=== PATIENT | female | born 1970 | race African-American/Black ===

== ENCOUNTER 2016-06-15 11:56 | Emergency (ER) | payer MEDICARE ==
--- NOTE | ~2016-06-15 | CR72 ---
[facility] A Service of [facility] RADIOLOGY TEXT RESULTS PATIENT: HUSEYIN FARIAS LOCATION: [facility] : 68 UNIT #: [id number] AGE: [address]: Marcellus Hercules MD SEX: F ORDER DR: [id number] [facility] [address] [place], [place] [address] [id number] E MR#: [id number] Acc #: [id number] NAME: HUSEYIN FARIAS. : 1970 SEX: F STUDY DATE/TIME: 06/15/2016 11:42 UNIT: DELMAR ROOM: STUDY DESCRIPTION: CR Chest Single View Portable Attending Physician: Marcellus Hercules M.D. Ordering Physician: Marcellus Hercules M.D. Primary Care Physician: Dimitri Avila A.P.R.N. MEDICAL IMAGING REPORT This report is preliminary unless electronic signature is present EXAM Frontal chest, 06/15/2016. INDICATION 46-year-old female with chest pain, cough and congestion for a week. Quit smoking 4 days ago. Hypertension. TECHNIQUE Frontal chest compared with 09/15/2006. FINDINGS Cardiac silhouette is enlarged even for portable technique. The vascularity is unremarkable. There is no dense consolidation, effusion, or pneumothorax. Examination degraded by technical factors related to body habitus. IMPRESSION Cardiomegaly, otherwise negative frontal chest. Exam degraded by body habitus. Dictated by... Rene Zhao M.D. THIS IS AN ELECTRONICALLY VERIFIED REPORT Rene Zhao M.D. at 06/15/2016 4:52 PM MARIELA/ray TD: 06/15/2016 15:52 JOB #: [id number] MEDICAL IMAGING REPORT [facility] A Service [facility] RADIOLOGY TEXT RESULTS PATIENT: HUSEYIN FARIAS LOCATION: [facility] : 68 UNIT #: [id number] AGE: [address]: Marcellus Hercules MD SEX: F ORDER DR: FERDINAND
--- NOTE | ~2016-06-15 | EKG ---
PATIENT: HUSEYIN FARIAS UNIT #: [id number] Ventricular Rate: 88 BPM Atrial Rate: 88 BPM P-R Interval: 128 ms QRS Duration: 68 ms Q-T Interval: 366 ms QTC Calculation(Bezet): 442 ms P [place]: 34 degrees Calculated R [place]: 23 degrees Calculated T [place]: 12 degrees Diagnosis Line: Normal sinus rhythm Diagnosis Line: Normal ECG Diagnosis Line: No previous ECGs available Diagnosis Line: Confirmed by EMILY BEAVERS MD ([id number]) on Diagnosis Line: 06/16/2016 11:23:41 AM INTERPRETING MD: NIMESH ALFORD
[~2016-06-15 11:56] MED LIST: ATARAX PO; FAMOTIDINE PO; PREDNISONE PO
[2016-06-15 12:03] LABS: POC - CKMB 1.2 ng/mL (0.0-7.9); POC - TROPONIN <0.05 ng/mL (<=0.05)
[2016-06-15 12:06] LABS: BASOPHIL% 0.4 % (0-2.5); EOSINOPHIL% 0.6 % (0.0-7.0); HEMATOCRIT 38.1 % (35.0-45.0); HEMOGLOBIN 11.8 gm/dL (12.0-16.0); LYMPHOCYTE# 1.6 X10e3 (1.0-3.5); LYMPHOCYTE% 29.4 % (17.0-45.0); MEAN CELL VOLUME 76.8 FL (83-96); MEAN CORPUSCULAR HEMOGLOBIN 23.8 PG (28-34); MEAN PLATELET VOLUME 7.3 FL (6.5-11.5); MONOCYTE# 0.6 X10e3 (0-1.0); MONOCYTE% 10.2 % (3.0-12.0); NEUTROPHIL# 3.3 X10e3 (1.5-7.1); NEUTROPHIL% 59.4 % (40-75); PLATELET COUNT 410 X10e3 (140-420); RED BLOOD COUNT 4.96 X10e (3.90-5.30); RED CELL DISTRIBUTION WIDTH 17.1 % (11.0-15.5); WHITE BLOOD COUNT 5.5 X10e3 (4.0-10.5)
[2016-06-15 12:10] LABS: DIFF IND NO
[2016-06-15 12:29] LABS: ALBUMIN SERUM 3.5 g/dL (3.5-5.0); ALKALINE PHOSPHATASE 58 U/L (32-92); ALT (SGPT) 23 U/L (10-40); AST (SGOT) 27 U/L (10-42); BILIRUBIN, DIRECT 0.1 mg/dL (0.0-0.2); BILIRUBIN,INDIRECT 0.2 mg/dL (0.0-0.9); BILIRUBIN,TOTAL 0.3 mg/dL (0.2-2.0); BLOOD UREA NITROGEN 10 mg/dL (9-23); CALCIUM SERUM 8.9 mg/dL (8.4-10.2); CARBON DIOXIDE 25 mmol/L (22-31); CHLORIDE 95 mmol/L (100-111); CREATININE SERUM 0.8 mg/dL (0.6-1.4); GLOM FILT RATE Estimated ABOVE60 mL/min (>60); GLUCOSE FASTING 292 mg/dL (70-110); POTASSIUM 4.2 mmol/L (3.5-5.1); PROTEIN TOTAL SERUM 7.2 g/dL (6.0-8.3); SODIUM 134 mmol/L (135-145)
[2016-06-15 13:43] LABS: POC - CKMB <1.0 ng/mL (0.0-7.9); POC - TROPONIN <0.05 ng/mL (<=0.05)
== END 2016-06-15 13:59 | disposition home or self-care (01) ==
LOC: CED 11:56
PROVIDERS: Emergency Medicine
DX: J20.9 Acute bronchitis, unspecified (principal); I10 Essential (primary) hypertension; F41.0 Panic disorder [episodic paroxysmal anxiety]; F17.210 Nicotine dependence, cigarettes, uncomplicated; Z79.899 Other long term (current) drug therapy; Z88.0 Allergy status to penicillin
CPT/HCPCS: 36415; 71010; 80048; 80076; 82553; 84484; 85025; 93005; 99284

== ENCOUNTER 2016-09-25 13:47 | Inpatient (IN) | payer MEDICARE ==
--- NOTE | ~2016-09-25 | A ---
[facility] Nutrition Therapy DATE: 09/27/16 Patient: HUSEYIN FARIAS Physician: CONCEPCION Address: [address] Room/Bed: [address] [place] [address], Zip: [place] [address] Admit Date: 09/25/16 Date of : [birth year] Height: 5 2.75 Weight: 330 150 NUTRITIONAL ASSESSMENT: REASON: DIET EDUCATION CONSULT AND HIGH BMI DOCUMENTATION 46 YO FEMALE ADMITTED FOR CHEST PAIN Anthropometrics: HT: 5'2" WT: 150 KG BMI: 60.5 Assessment: CHART REVIEWED, EVENTS NOTED. RD CONSULTED TO SEE THE PT FOR CHF DIET EDUCATION/ MEAL PLANNING. RD SPOKE WITH THE PT AT BEDSIDE. PT VOICED MOTIVATION TO MAKE CHANGES THER DIET, STATING THAT SHE IS OVERWHELMED AND SCARED. RD PROVIDED EXTENSIVE HH/CC DIET EDUCATION, WITH FOCUS ON 2 GRAM NA+ DIET FOR CHF. PT WAS VERY APPRECIATIVE, EXPLAINING THAT SHE FEELS MORE PREPARED TO MAKE CHANGES NOW. PT ALSO ASKED ABOUT EXERCISE. RD ENCOURAGED THE PT TO SPEAK WITH HER MD REGARDING EXERCISE. RD PROVIDED PRINTED MATERIALS, AND ENCOURAGED THE PT TO CONTACT RD WITH ANY QUESTIONS. Recommendations: 1. FOLLOW A HH (2 GRAM NA+) /CC DIET INSTRUCTED BY RD. 2. PT WOULD BENEFIT FROM SEEING AN OUTPATIENT RD OR ATTENDING FREE CLASSES AT HER LOCAL HEALTH DEPARTMENT FOR ADDITIONAL EDUCATION AND FOLLOW UP. [facility] CONSULT RD FOR ANY FURTHER NUTRITIONAL NEEDS. Respectfully, MINI CORTÉS RD, LD Food and Nutritional Services [facility] cc: client file
--- NOTE | ~2016-09-25 | CO ---
Unit #: [id number] #: [id number] Patient: HUSEYIN VIDES [id number] [address] [address] [id number] I MR#: [id number] NAME: HUSEYIN VIDES ROOM: 303 Age: 46 Sex: F Admission Date: 09/25/2016 : 1970 Attending Physician: Wilfredo Brewer M.D. Primary Care Physician: Dimitri Avila A.P.R.N. CONSULTATION REPORT REASON FOR CONSULTATION Management of diabetes mellitus. Ms. Vides is a 46-year-old -[place]ian female who has been admitted with increasing shortness of air, swelling in lower extremities and dyspnea and some chest discomfort. Her blood sugar has been elevated and I have been asked to see the patient for further management. MEDICAL HISTORY 1. Type 2 diabetes mellitus. 2. Morbid obesity. 3. Depression/bipolar disorder. PAST SURGICAL HISTORY I and D. MEDICATIONS Home medications include: 1. Metformin 1000 mg twice daily. 2. 70/30 mix NovoLog, 30 units twice daily. Other medications include: 3. Lopressor. 4. Furosemide. 5. Hydrocortisone. 6. Pravastatin. 7. Lisinopril. ALLERGIES Penicillin. SOCIAL HISTORY She is an active smoker. Declines alcohol or illicit drugs. FAMILY HISTORY Unremarkable. PHYSICAL EXAMINATION GENERAL APPEARANCE: She is awake, alert, oriented to time, place and person. VITAL SIGNS: Temperature 98.4, pulse 82, blood pressure 159/88, weighs 330 pounds with a BMI of 59. HEENT: EOMI. Pupils equal, react to light. NECK: Supple. No thyromegaly noted. CHEST: Good air entry. Unit #: [id number] #: [id number] Patient: HUSEYIN VIDES CVS: Regular rhythm. No murmurs. ABDOMEN: Soft, nontender. Bowel sounds positive. EXTREMITIES: She does have some edema. DIAGNOSTIC STUDIES LABORATORY: CMP is within normal limits. Glucose log is reviewed. ASSESSMENT 1. Uncontrolled type 2 diabetes mellitus. 2. Morbid obesity. 3. Hypertension. PLAN Change the insulin to 70/30 NovoLog mix 40 units subcu twice daily before meals. Will continue her metformin same dose. Accu-Cheks a.c. and h.s. Continue to follow the patient for further management. Dictated by... Rafael Ocampo/myke TD: 09/29/2016 09:37 JOB #: [id number] CONSULTATION REPORT Page 1 of 1 X Svitlana Brady MD X CONSULTATION REPORT
--- NOTE | ~2016-09-25 | EKG ---
PATIENT: HUSEYIN FARIAS UNIT #: [id number] Ventricular Rate: 76 BPM Atrial Rate: 76 BPM P-R Interval: 136 ms QRS Duration: 68 ms Q-T Interval: 404 ms QTC Calculation(Bezet): 454 ms P [place]: 30 degrees Calculated R [place]: 24 degrees Calculated T [place]: 6 degrees Diagnosis Line: Normal sinus rhythm Diagnosis Line: Nonspecific T wave abnormality Diagnosis Line: Abnormal ECG Diagnosis Line: When compared with ECG of 15-JUN-2016 11:18, Diagnosis Line: Nonspecific T wave abnormality now evident in Diagnosis Line: Anterior leads Diagnosis Line: Confirmed by KENNA LOGAN MD ([id number]) on Diagnosis Line: 09/26/2016 10:37:15 PM INTERPRETING : RIKKI
--- NOTE | ~2016-09-25 | CR63 ---
[facility] A Service of [facility] RADIOLOGY TEXT RESULTS PATIENT: HUSEYIN FARIAS LOCATION: [facility] 303- : [birth year] UNIT #: [id number] AGE: [address]: Wilfredo Brewer MD SEX: F ORDER DR: [id number] [facility] [address] [facility] [place], [place] [address] [id number] I MR#: [id number] Acc #: [id number] NAME: HUSEYIN FARIAS : 1970 SEX: F STUDY DATE/TIME: 10/03/2016 14:19 UNIT: [address] ROOM: 303 STUDY DESCRIPTION: CR Chest 2 View Attending Physician: Wilfredo Brewer M.D. Ordering Physician: Matthieu Hernandez M.D. Primary Care Physician: Dimitri Avila A.P.R.N. MEDICAL IMAGING REPORT This report is preliminary unless electronic signature is present EXAM PA and lateral chest HISTORY Shortness of air and CHF for 1.5 weeks. FINDINGS 2 views of the chest demonstrate the cardiac size and pulmonary vascularity are within normal limits allowing for relatively shallow inspiration. No airspace infiltrates or effusions. Probable tiny calcified granuloma in the left upper lung and moderate hypertrophic spurring mid and lower thoracic spine. IMPRESSION No acute findings and no evidence of active disease. Dictated by... Yoan Valenzuela M.D. THIS IS AN ELECTRONICALLY VERIFIED REPORT Yoan Valenzuela M.D. at 10/04/2016 5:34 PM KELSEY/paul TD: 10/04/2016 02:18 JOB #: [id number] MEDICAL IMAGING REPORT Page 1 of 1 COPY
--- NOTE | ~2016-09-25 | CT16 ---
[facility] A Service of [facility] RADIOLOGY TEXT RESULTS PATIENT: HUSEYIN FARIAS LOCATION: [facility] 303- : [birth year] UNIT #: [id number] AGE: [address]: Wilfredo Brewer MD SEX: F ORDER DR: [id number] [address] [id number] [facility]. [place], [place] [address] [id number] I MR#: [id number] Acc #: [id number] NAME: HUSEYIN FARIAS : 1970 SEX: F STUDY DATE/TIME: 09/25/2016 20:31 UNIT: [address] ROOM: 303 STUDY DESCRIPTION: CT Angio Chest for PE Attending Physician: Wilfredo Brewer M.D. Ordering Physician: Slade Chavarria A.P.R.N. Primary Care Physician: Dimitri Avila A.P.R.N. MEDICAL IMAGING REPORT This report is preliminary unless electronic signature is present EXAM CT chest, PE protocol. HISTORY Chest pain, shortness of air, elevated D-dimer. Symptoms for over a month. FINDINGS Axial images performed through the chest following IV contrast. Initial study was nondiagnostic and the patient was re-dosed and rescanned. Multiplanar reconstructed images reviewed at a workstation. This CT exam was performed with one or more of the following radiation dose reduction techniques: automatic exposure control, adjustment of mA and/or kV according to patient size, and iterative reconstruction. The pulmonary parenchyma unremarkable except for a small amount of lingular atelectasis. No infiltrates or effusions. Trachea and bronchi unremarkable. No evidence of pulmonary embolus. Mild cardiomegaly. Aorta free of dissection or aneurysm. Upper abdomen unremarkable. Osseous structures show mild degenerative changes. The thoracic inlet unremarkable. Marked obesity. IMPRESSION 1. Technically challenging study due to patient's marked obesity. 2. No evidence of pulmonary embolus. No acute intrathoracic abnormality identified. Dictated by.Poncho Gusman M.D. THIS IS AN ELECTRONICALLY VERIFIED REPORT [facility] A Service of [facility] RADIOLOGY TEXT RESULTS PATIENT: HUSEYIN FARIAS LOCATION: [facility] 303-01 : [birth year] UNIT #: [id number] AGE: [address]: Wilfredo Brewer MD SEX: F ORDER DR: Leeann Gusman M.D. at 09/26/2016 9:16 PM Otf TD: 09/25/2016 23:39 JOB #: [id number] MEDICAL IMAGING REPORT Page 1 of 1 COPY
--- NOTE | ~2016-09-25 | EKG ---
PATIENT: HUSEYIN FARIAS UNIT #: [id number] Ventricular Rate: 85 BPM Atrial Rate: 85 BPM P-R Interval: 122 ms QRS Duration: 70 ms Q-T Interval: 364 ms QTC Calculation(Bezet): 433 ms P [place]: 27 degrees Calculated R [place]: 21 degrees Calculated T [place]: 0 degrees Diagnosis Line: Normal sinus rhythm Diagnosis Line: Nonspecific T wave abnormality Diagnosis Line: Abnormal ECG Diagnosis Line: No previous ECGs available Diagnosis Line: Confirmed by PRIYA PENALOZA MD ([id number]) on 09/30/2016 Diagnosis Line: 8:27:43 PM INTERPRETING MD: TREMAINE ALFORD
--- NOTE | ~2016-09-25 | US84 ---
[id number] [facility] [address] [place], [place] [address] [id number] I MR#: [id number] Acc #: [id number] NAME: HUSEYIN FARIAS : 1970 SEX: F STUDY DATE/TIME: 09/27/2016 16:10 UNIT: C3A PCU ROOM: 303 STUDY DESCRIPTION: US LE Veins Complete Morgan Stdy Attending Physician: Wilfredo Brewer M.D. Ordering Physician: Wilfredo Brewer M.D. Primary Care Physician: Dimitri Avila A.P.R.N. MEDICAL IMAGING REPORT This report is preliminary unless electronic signature is present EXAM Bilateral lower extremity venous duplex 09/27/2016 HISTORY Bilateral lower extremity edema and pain in thighs for several months with edema worsening last month and shortness of breath. Evaluate for deep vein thrombosis. TECHNIQUE Venous ultrasound examination of both lower extremities was performed using grayscale, spectral Doppler and color flow Doppler imaging. FINDINGS The examination is negative. There is no evidence of deep venous thrombus from the groin to the lower calf bilaterally. Visualized greater saphenous veins are also patent. IMPRESSION Negative examination. No evidence of lower extremity deep venous thrombosis. Dictated by... Joseph Goodwin M.D. THIS IS AN ELECTRONICALLY VERIFIED REPORT Joseph Goodwin M.D. at 09/28/2016 8:05 AM EMILIANO/maddi TD: 09/28/2016 07:45 JOB #: [id number] MEDICAL IMAGING REPORT Page 1 of 1 COPY
--- NOTE | ~2016-09-25 | CO ---
Unit #: [id number] #: [id number] Patient: HUSEYIN FARIAS [id number] [address] [place], [place] [address] [id number] I MR#: [id number] NAME: HUSEYIN FARIAS ROOM: 303 Age: 46 Sex: F Admission Date: 09/25/2016 : 1970 Attending Physician: Wilfredo Brewer M.D. Primary Care Physician: Dimitri Avila A.P.R.N. Consultation Date: 09/26/2016 CONSULTATION REPORT REASON FOR CONSULTATION Chest pain. HISTORY OF PRESENT ILLNESS The patient is a 46-year-old, female with morbid obesity, risk factors such as hypertension, and hyperlipidemia. Over the last month, she has been having some increase in peripheral edema and lower extremity rash and itching. Yesterday, it was persistent regardless of increasing her home Lasix dose as well as having her blood pressure being elevated. Yesterday, the patient complained of a soreness in the chest and came to the hospital for further evaluation. She has also had a cough and some shortness of breath with exertion. PAST MEDICAL HISTORY Significant for morbid obesity, diabetes, hypertension, obstructive sleep apnea, noncompliant with CPAP over the last several years because her machine was damaged, GERD, and negative stress test in 2005. SOCIAL HISTORY The patient is a daily smoker. No alcohol or illicit drug use. FAMILY HISTORY Noncontributory. DIAGNOSTICS EKG shows sinus rhythm with no significant ST changes. D-dimer was elevated, but a CT of the chest was negative for PE. Chest x-ray shows a right middle lobe pneumonia. Troponin is negative x4. White blood cell count 11.2, hemoglobin 10.9, hematocrit 36.6, and platelet count 438. Sodium 136, potassium 4.9, chloride 97, CO2 of 28, BUN 14, creatinine 0.8, and glucose 282. ALLERGIES To penicillin. HOME MEDICATIONS Klonopin 1 mg b.i.d., Naprosyn 500 mg b.i.d., calcium 600 plus D one p.o. daily, natural vitamin E 400 international units daily, metoprolol tartrate 50 mg b.i.d., Lasix 40 mg daily, hydrocortisone cream 14 g topically to both legs daily, Ventolin 1 puff q.4 hours p.r.n., NovoLog mix 70/30 one unit subcu three times a with meals, Lamictal 300 mg daily, metformin a 1000 mg b.i.d., Latuda 20 mg daily, pravastatin 40 mg daily, and lisinopril 30 mg daily. Unit #: [id number] #: [id number] Patient: HUSEYIN FARIAS REVIEW OF SYSTEMS Complains of peripheral edema, shortness of breath, soreness in the chest, reproducible cough, and rash to both lower extremities. PHYSICAL EXAMINATION GENERAL: The patient is awake and alert. No apparent distress. Color is pale pink. SKIN: Warm and dry. VITAL SIGNS: Afebrile, heart rate 89, and blood pressure 159/91. HEENT: Normal carotid upstrokes. No auscultated bruit. Negative JVD. Lying supine. Negative hepatojugular reflux. Pupils equal, round, and reactive. CHEST: Respirations are regular, unlabored at rest. Bilateral breath sounds have good air entry throughout all lung sanches. No crackles, rubs, or wheezes are heard. HEART: S1 and S2. Regular rate and rhythm. No murmurs, rubs, or gallops. ABDOMEN: Soft, nontender, and nondistended. Positive bowel sounds in all 4 quadrants. No ascites noted. EXTREMITIES: Bilateral lower extremities have 1+ edema. DP/PT pulses are 2+. Cap refill less than 3 seconds. NEURO: No focal motor or sensory deficits. IMPRESSION 1. Atypical chest pain most likely related to #2. 2. Right middle lobe pneumonia. 3. Peripheral edema due to body habitus and uncontrolled hypertension. 4. Hypertension. 5. Diabetes. PLAN We will increase lisinopril to 40 mg daily. We will give the patient one dose of IV Lasix and see if this helps improve her edema. Low sodium diet and watch electrolytes closely. We will check a 2D echo with Doppler to assess LV function. Chest pain is very atypical. Do not anticipate any ischemic workup at this time. Stress testing would most likely be increased risk of false positive or negative due to body habitus. Dictated by... Darby Rico APRN for Rafael Hammonds/radha TD: 09/26/2016 12:39 JOB #: [id number] CONSULTATION REPORT Page 1 of 1 X X CONSULTATION REPORT
--- NOTE | ~2016-09-25 | CR63 ---
[facility] A Service of [facility] & [facility] RADIOLOGY TEXT RESULTS PATIENT: HUSEYIN FARIAS [facility] [id number] : [birth year] UNIT #: [id number] AGE: [address]: Wilfredo Brewer MD SEX: F ORDER DR: [id number] [facility] [address] [facility]. [place], [place] [address] [id number] E MR#: [id number] Acc #: [id number] NAME: HUSEYIN FARIAS : 1970 SEX: F STUDY DATE/TIME: 09/25/2016 15:59 UNIT: [facility] ROOM: STUDY DESCRIPTION: CR Chest 2 View Attending Physician: Slade Chavarria A.P.R.N. Ordering Physician: Slade Chavarria A.P.R.N. Primary Care Physician: Dimitri Avila A.P.R.N. MEDICAL IMAGING REPORT This report is preliminary unless electronic signature is present EXAM Two-view chest. HISTORY 46-year-old female, shortness of air x3 days, over 20-year history of smoking. COMPARISON 06/15/2016 FINDINGS Two views of the chest demonstrates parenchymal opacity of the right lower lobe silhouetting a portion of the right heart border could represent a right middle lobe atelectasis or infiltrate, possibly right lower lobe infiltrate. Study somewhat limited due to patient's body habitus. No effusions. Mild cardiomegaly. Mediastinum/great vessels unremarkable. No pneumothorax. IMPRESSION Parenchymal opacity of the right infrahilar right midlung region. This may represent focal atelectasis or infiltrate right middle lobe or possibly right lower lobe. This is new from patient's June study. Dictated by... Leeann Gusman M.D. THIS IS AN ELECTRONICALLY VERIFIED REPORT Leeann Gusman M.D. at 09/25/2016 9:10 PM Otf TD: 09/25/2016 18:15 JOB #: [id number] [facility] A Service of [facility] & [facility] RADIOLOGY TEXT RESULTS PATIENT: HUSEYIN FARIAS [facility] [id number] : [birth year] UNIT #: [id number] AGE: [address]: Wilfredo Brewer MD SEX: F ORDER DR: MEDICAL IMAGING REPORT Page 1 of 1 COPY
--- NOTE | ~2016-09-25 | DS ---
Unit #: [id number] #: [id number] Patient: HUSEYIN VIDES [id number] [address] [address] [id number] I MR#: [id number] NAME: HUSEYIN VIDES ROOM: 303 Age: 46 Sex: F Admission Date: 09/25/2016 : 1970 Discharge Date: 10/04/2016 Attending Physician: Wilfredo Brewer M.D. Primary Care Physician: Dimitri Avila A.P.R.N. DISCHARGE SUMMARY FINAL DIAGNOSES 1. Acute on chronic diastolic congestive heart failure. 2. Right ventricular systolic pressure of 37 millimeters of mercury. 3. Pulmonary hypertension. 4. Atypical chest pain. 5. Diabetes mellitus, uncontrolled. 6. Obstructive sleep apnea. 7. Chronic obstructive pulmonary disease. 8. Morbid obesity. 9. Anxiety. DISCHARGE MEDICATIONS 1. Ventolin inhaler q.4 p.r.n. 2. Hydrocortisone cream p.r.n. 3. Lamictal 75 mg daily. 4. Latuda 20 mg daily. 5. Klonopin 1 mg b.i.d. p.r.n. 6. Metoprolol 50 mg q.12. 7. Furosemide 80 mg b.i.d. 8. Vitamin E 400 international units daily. 9. Pravastatin 40 mg daily. 10. Lisinopril 40 mg daily. 11. Levemir 40 units subcu b.i.d. 12. NovoLog 15 units subcu t.i.d. 13. Spironolactone 25 mg daily. 14. Os-Prabhjot 500 mg daily. CONSULTATIONS DURING HOSPITALIZATION 1. Dr. Rico from cardiology service. 2. Dr. Hernandez from pulmonary service. 3. Dr. Brady from endocrinology service. DIAGNOSTIC STUDIES LAB WORKUP ON DISCHARGE: Glucose 213. BNP 17 on discharge. BMP shows sodium 140, potassium 4, chloride 100, BUN 26, creatinine 0.9, magnesium 1.9. CBC shows WBC 7.9, hemoglobin 11.7, hematocrit 39.2 and platelet count of 435. IMAGING: Ultrasound of bilateral lower extremity was negative for any DVT. HOSPITAL COURSE Ms. Huseyin Vides is a 46-year-old morbidly obese female who was admitted with dyspnea. The patient was admitted to telemetry unit. Unit #: [id number] #: [id number] Patient: HUSEYIN VIDES Pulmonary embolism was ruled out by CTA of the chest, which showed technically challenging study due to the patient's marked obesity. No evidence of pulmonary embolism. DVT was also ruled out. Patient was diagnosed with acute diastolic congestive heart failure. Dr. Rico was consulted. Acute myocardial infarction was ruled out. The patient's medications have been adjusted. The patient received IV diuretics during hospitalization. Two-D echocardiogram was done, which shows left ventricular size is normal, moderate concentric left ventricular hypertrophy and right ventricular systolic pressure of 37 mmHg, consistent with pulmonary hypertension. As per Dr. Smith, mechanotherapist, stress testing would most likely have increased risk of false positive or negative due to body habitus. The patient does need to reduce weight. Weight loss counselling was done. The patient was also seen by Dr. Hernandez from pulmonary service. Most likely the patient has COPD. There is no pneumonia on CT chest. PE was ruled out. The patient does have obstructive sleep apnea. She needs to use CPAP at home. Diabetes management was done during hospitalization. Endocrinology was consulted, and the patient was started on Levemir and NovoLog. She is doing better, is being discharged home. DISCHARGE PHYSICAL EXAMINATION VITAL SIGNS: Blood pressure is 120/76, respiratory rate 16, pulse 78, temperature 97.9, oxygen saturation 99%. HEAD: Normocephalic. RESPIRATORY: Chest has fair air entry, decreased at the bases. CVS: Regular rhythm. EXTREMITIES: Trace edema. DISCHARGE INSTRUCTIONS 1. The patient is being discharged home in stable condition. 2. Follow up with primary care provider in 1 week. 3. Follow up with Dr. Rico in 2 weeks. 4. CBC and BMP to be done in 1 week. Dictated by... Rafael Mays TD: 10/06/2016 08:48 JOB #: [id number] DISCHARGE SUMMARY Page 1 of 1 X Beatrice Talavera MD DISCHARGE SUMMARY
--- NOTE | ~2016-09-25 | HP ---
Unit #: [id number] #: [id number] Patient: HUSEYIN VIDES [id number] [address] [address] [id number] I MR#: [id number] NAME: HUSEYIN VIDES ROOM: 303 Age: 46 Sex: F Admission Date: 09/25/2016 : 1970 Attending Physician: Wilfredo Brewer M.D. Primary Care Physician: Dimitri Avila A.P.R.N. HISTORY AND PHYSICAL ADMISSION DIAGNOSES 1. Dyspnea. 2. Questionable pulmonary embolism. 3. Atypical chest pain. 4. Pneumonia. 5. Morbid obesity. 6. Obstructive sleep apnea. HISTORY OF PRESENT ILLNESS Ms. Vides is a 46-year-old -[place]ian female patient of Dr. Lassiter'gigi who comes to the emergency room with complaints of increased shortness of air and dyspnea along with the lower extremity swelling and some chest discomfort over the left side from last night. Denies any fever, chills, nausea, vomiting, diarrhea or abdominal discomfort. Denies any headaches, dizziness, or syncopal episodes. REVIEW OF SYSTEMS Twelve point review of systems on this patient is basically negative, except as above. PAST MEDICAL HISTORY Significant for morbid obesity. Continues tobacco use, hypertension, dyslipidemia and diabetes. PAST SURGICAL HISTORY Significant I and D only. HOME MEDICATIONS Klonopin, Naprosyn, calcium and vitamin D, vitamin E, Lopressor, furosemide, hydrocortisone topical cream, Ventolin, insulin 70/30 mixed, Lamictal, metformin, Latuda, pravastatin, lisinopril. ALLERGIES Penicillin. SOCIAL HISTORY She is an active smoker. Denies any alcohol or illicit drugs. FAMILY HISTORY Unremarkable. PHYSICAL EXAMINATION GENERAL APPEARANCE: She is a 46-year-old, morbidly obese, -[place]ian female in no acute distress. Unit #: [id number] #: [id number] Patient: HUSEYIN VIDES VITAL SIGNS: BP 168/75, heart rate 86, respirations 22, temperature 98.5. HEENT: Head is atraumatic. Pupils equal, round, and reactive to light. Extraocular muscles intact. Oropharynx clear. NECK: Supple. No mass. No JVD. No bruits. CHEST: Diminished bilaterally. CARDIOVASCULAR: S1 and S2. No murmurs. ABDOMEN: Obese, soft, nontender, and nondistended. LOWER EXTREMITIES: With 1+ edema. NEUROLOGIC: Patient grossly intact. No focal deficits. DIAGNOSTIC STUDIES IMAGING STUDIES: Chest x-ray showed some right infrahilar mid lung region, parenchymal opacity, atelectasis versus infiltrate. LABORATORY STUDIES: Chemistry showed blood glucose 214. D-dimer elevated at 840. Cardiac enzymes negative. White count at 8.9, H and H 11 and 36.6. ASSESSMENT AND PLAN 1. Shortness of air and dyspnea. Needs to be rule out on the PE. D-dimer elevated. CT angio (1) pending. 2. Atypical chest pain. Troponin, 2D echo, and cardiology consult. 3. Pneumonia. Start on IV Levaquin. Pulmonary to see. 4. Morbid obesity. Counseled on importance of losing some weight. 5. Hypertension. Continue home meds. 6. Dyslipidemia. Continue home meds. 7. Diabetes. Will cover with sliding scale and continue home meds. Hold metformin. 8. Tobacco abuse. Counseled on the importance of quitting. 9. GI and DVT prophylaxis. Some PPI and Lovenox. Dictated by Wilfredo Brewer M.D. OC/ts TD: 09/26/2016 17:33 JOB #: [id number] HISTORY AND PHYSICAL Page 1 of 1 X Wilfredo Brewer MD X HISTORY AND PHYSICAL
--- NOTE | ~2016-09-25 | CO ---
Unit #: [id number] #: [id number] Patient: HUSEYIN FARIAS [id number] [address] [address] [id number] I MR#: [id number] NAME: HUSEYIN FARIAS ROOM: 303 Age: 46 Sex: F Admission Date: 09/25/2016 : 1970 Attending Physician: Wilfredo Brewer M.D. Primary Care Physician: Dimitri Avila A.P.R.N. CONSULTATION REPORT REASON FOR CONSULTATION Shortness of breath. HISTORY OF PRESENT ILLNESS 46-year-old female with a past medical history of obstructive sleep apnea, morbid obesity and likely COPD, presents with a complaint of shortness of breath. CT chest showed no pulmonary embolism and no pneumonic infiltrate. I am seeing the patient at bedside. She has been complaining of some retrosternal chest pain. Denies any nausea, vomiting, diarrhea. REVIEW OF SYSTEMS Positive for pallor. No edema, no cyanosis, no jaundice. The rest as per History of Present Illness. The rest of the twelve point review of systems has been reviewed and is negative. PAST MEDICAL HISTORY 1. Hypertension. 2. COPD, likely active smoker. 3. Morbid obesity. 4. Diabetes. 5. Dyslipidemia. PAST SURGICAL HISTORY I and D. HOME MEDICATIONS 1. Klonopin. 2. Naprosyn. 3. Calcium. 4. Vitamin D. 5. Vitamin E. 6. Lopressor. 7. Lasix. 8. Hydrocortisone topically. 9. Insulin. 10. Ventolin. 11. Lamictal. 12. Metformin. 13. Latuda. 14. Pravastatin. 15. Lisinopril. ALLERGIES Penicillin. Unit #: [id number] #: [id number] Patient: HUSEYIN FARIAS SOCIAL HISTORY Active smoker, one pack per day. Denies alcohol or drug abuse. PHYSICAL EXAMINATION VITAL SIGNS: Temperature 98, pulse 87, respirations 12, blood pressure 160/70. NEUROLOGICAL: Awake, alert, oriented. No neuro deficit. HEENT: PERRLA. NECK: Supple. No JVD. CHEST: Bilateral air entry, bilateral mild rhonchi. GI: Nontender, soft. Bowel sounds positive. EXTREMITIES: Trace edema. DIAGNOSTIC STUDIES Labs and imaging have been reviewed. ASSESSMENT AND PLAN 1. Dyspnea. 2. Obstructive sleep apnea. 3. Underlying likely chronic obstructive pulmonary disease. No pneumonia on CT chest. 4. Morbid obesity. 5. Hypertension. 6. Dyslipidemia. Will discontinue antibiotics and get a procalcitonin level. No pulmonary embolism seen on the CT chest. Will resume patient on CPAP and continue oxygen and bronchodilator. Need outpatient pulmonary function test, weight loss and smoking cessation counseling has been done. The patient will be closely monitored. I would like to thank Dr. Brewer for your kind consideration to involve me in taking care of this patient. Dictated by... Rafael Smith TD: 09/27/2016 05:12 JOB #: [id number] CONSULTATION REPORT Page 1 of 1 X Matthieu Hernandez MD X CONSULTATION REPORT
[2016-09-25 15:32] LABS: PARTIAL THROMBOPLASTIN TIME 24.4 SECONDS (23.5-31.3); PROTHROMBIN TIME (PATIENT) 10.4 SECONDS (10.0-11.7)
[2016-09-25 15:36] LABS: BASOPHIL% 0.4 % (0-2.5); EOSINOPHIL# 0.1 X10e3 (0-0.7); EOSINOPHIL% 1.4 % (0.0-7.0); HEMATOCRIT 36.6 % (35.0-45.0); LYMPHOCYTE# 1.7 X10e3 (1.0-3.5); LYMPHOCYTE% 19.3 % (17.0-45.0); MEAN CELL VOLUME 72.1 FL (83-96); MEAN CORPUSCULAR HEMOGLOBIN 21.6 PG (28-34); MEAN PLATELET VOLUME 7.2 FL (6.5-11.5); MONOCYTE# 0.4 X10e3 (0-1.0); MONOCYTE% 4.9 % (3.0-12.0); NEUTROPHIL# 6.6 X10e3 (1.5-7.1); PLATELET COUNT 411 X10e3 (140-420); RED BLOOD COUNT 5.07 X10e (3.90-5.30); RED CELL DISTRIBUTION WIDTH 18.6 % (11.0-15.5); WHITE BLOOD COUNT 8.9 X10e3 (4.0-10.5)
[2016-09-25 15:38] LABS: DIFF IND NO
[2016-09-25 15:42] LABS: ALBUMIN SERUM 3.7 g/dL (3.5-5.0); BILIRUBIN,TOTAL 0.5 mg/dL (0.2-2.0); BUN/CREATININE RATIO 14.28; CALCIUM SERUM 8.9 mg/dL (8.4-10.2); CREATININE SERUM 0.7 mg/dL (0.6-1.4); GLOM FILT RATE Estimated 119.6 mL/min (>60); POTASSIUM 3.9 mmol/L (3.5-5.1); PROTEIN TOTAL SERUM 7.4 g/dL (6.0-8.3)
[2016-09-25 16:19] LABS: POC - CKMB <1.0 ng/mL (0.0-7.9); POC - TROPONIN <0.05 ng/mL (<=0.05)
[2016-09-25] MEDS ORDERED: NAPROSYN-EC500 M1 DOB (17:27)
[2016-09-25] MEDS ORDERED: KLONOPIN1 MG PO (17:27)
[2016-09-25 17:28] LABS: POC - CKMB <1.0 ng/mL (0.0-7.9); POC - TROPONIN <0.05 ng/mL (<=0.05)
[2016-09-25] MEDS ORDERED: CALCIUM 600 +1 EAC2 PO (17:28)
[2016-09-25] MEDS ORDERED: NATURAL VITA400 UNI2 PO (17:29)
[2016-09-25] MEDS ORDERED: LOPRESSOR PO (17:30)
[2016-09-25] MEDS ORDERED: LAMICTAL XR300 MG PO (17:31)
[2016-09-25] MEDS ORDERED: METFORMIN HCL1000 M1 PO (17:32)
[2016-09-25] MEDS ORDERED: LISINOPRIL30 MG PO (17:33)
[2016-09-25] MEDS ORDERED: LATUDA20 MG PO (17:33)
[2016-09-25] MEDS ORDERED: PRAVASTATIN SOD40 MG PO (17:33)
[2016-09-25] MEDS ORDERED: FUROSEMIDE40 MG PO (17:34)
[2016-09-25] MEDS ORDERED: SOOTHING CARE28 GM TOP (17:37)
[2016-09-25] MEDS ORDERED: ALBUTEROL17 GM INH (17:37)
[2016-09-25] MEDS ORDERED: NOVOLOG MI100 UNIT/1 SUBQ (17:39)
[2016-09-25 23:47] LABS: CK TOTAL 38 IU/L (26-140)
[2016-09-26 07:32] LABS: HEMATOCRIT 36.6 % (35.0-45.0); HEMOGLOBIN 10.9 gm/dL (12.0-16.0); LYMPHOCYTE# 1.2 X10e3 (1.0-3.5); LYMPHOCYTE% 10.5 % (17.0-45.0); MEAN CELL VOLUME 72.3 FL (83-96); MEAN CORPUSCULAR HEMOGLOBIN 21.6 PG (28-34); MEAN CORPUSCULAR HGB CONC 29.8 g/dL (30-36); MEAN PLATELET VOLUME 7.5 FL (6.5-11.5); MONOCYTE# 0.4 X10e3 (0-1.0); MONOCYTE% 3.5 % (3.0-12.0); NEUTROPHIL# 9.6 X10e3 (1.5-7.1); PLATELET COUNT 438 X10e3 (140-420); RED BLOOD COUNT 5.06 X10e (3.90-5.30); RED CELL DISTRIBUTION WIDTH 18.6 % (11.0-15.5); WHITE BLOOD COUNT 11.2 X10e3 (4.0-10.5)
[2016-09-26 07:46] LABS: BUN/CREATININE RATIO 17.5; CALCIUM SERUM 9.2 mg/dL (8.4-10.2); CREATININE SERUM 0.8 mg/dL (0.6-1.4); GLOM FILT RATE Estimated 101.8 mL/min (>60); POTASSIUM 4.9 mmol/L (3.5-5.1)
[2016-09-26 07:47] LABS: CK TOTAL 39 IU/L (26-140); DIFF IND NO
[2016-09-27 06:54] LABS: HEMOGLOBIN 10.2 gm/dL (12.0-16.0); MEAN CELL VOLUME 72.5 FL (83-96); MEAN CORPUSCULAR HEMOGLOBIN 21.4 PG (28-34); MEAN CORPUSCULAR HGB CONC 29.5 g/dL (30-36); MEAN PLATELET VOLUME 7.5 FL (6.5-11.5); RED BLOOD COUNT 4.77 X10e (3.90-5.30); RED CELL DISTRIBUTION WIDTH 18.6 % (11.0-15.5); WHITE BLOOD COUNT 9.2 X10e3 (4.0-10.5)
[2016-09-27 06:55] LABS: HEMATOCRIT 34.6 % (35.0-45.0)
[2016-09-27 07:48] LABS: BUN/CREATININE RATIO 18.57; CALCIUM SERUM 8.4 mg/dL (8.4-10.2); CREATININE SERUM 0.7 mg/dL (0.6-1.4); GLOM FILT RATE Estimated 119.6 mL/min (>60); POTASSIUM 3.8 mmol/L (3.5-5.1)
[2016-09-29 12:45] LABS: CREATININE SERUM 0.6 mg/dL (0.6-1.4); GLOM FILT RATE Estimated 125.8 mL/min (>60); MAGNESIUM 1.8 mg/dL (1.6-3.0)
[2016-09-29 18:33] LABS: BUN/CREATININE RATIO 21.42; CALCIUM SERUM 8.9 mg/dL (8.4-10.2); CREATININE SERUM 0.7 mg/dL (0.6-1.4); GLOM FILT RATE Estimated 119.6 mL/min (>60); MAGNESIUM 1.6 mg/dL (1.6-3.0); POTASSIUM 3.8 mmol/L (3.5-5.1)
[2016-09-30 06:20] LABS: HEMATOCRIT 39.5 % (35.0-45.0); HEMOGLOBIN 11.7 gm/dL (12.0-16.0); MEAN CELL VOLUME 72.4 FL (83-96); MEAN CORPUSCULAR HEMOGLOBIN 21.4 PG (28-34); MEAN CORPUSCULAR HGB CONC 29.6 g/dL (30-36); MEAN PLATELET VOLUME 7.3 FL (6.5-11.5); RED BLOOD COUNT 5.45 X10e (3.90-5.30); RED CELL DISTRIBUTION WIDTH 18.8 % (11.0-15.5); WHITE BLOOD COUNT 8.8 X10e3 (4.0-10.5)
[2016-09-30 06:58] LABS: BUN/CREATININE RATIO 18.75; CALCIUM SERUM 8.3 mg/dL (8.4-10.2); CREATININE SERUM 0.8 mg/dL (0.6-1.4); GLOM FILT RATE Estimated 101.8 mL/min (>60); MAGNESIUM 1.7 mg/dL (1.6-3.0); POTASSIUM 3.7 mmol/L (3.5-5.1)
[2016-09-30] MEDS ORDERED: LAMICTAL PO (09:21)
[2016-09-30 16:41] LABS: BUN/CREATININE RATIO 23.33; CALCIUM SERUM 8.9 mg/dL (8.4-10.2); CREATININE SERUM 0.9 mg/dL (0.6-1.4); GLOM FILT RATE Estimated 88.3 mL/min (>60)
[2016-10-01 09:41] LABS: BUN/CREATININE RATIO 38.33; CALCIUM SERUM 8.8 mg/dL (8.4-10.2); CREATININE SERUM 0.6 mg/dL (0.6-1.4); GLOM FILT RATE Estimated 125.8 mL/min (>60); MAGNESIUM 1.8 mg/dL (1.6-3.0); POTASSIUM 3.9 mmol/L (3.5-5.1)
[2016-10-02 07:19] LABS: HEMATOCRIT 39.2 % (35.0-45.0); HEMOGLOBIN 11.7 gm/dL (12.0-16.0); MEAN CELL VOLUME 72.3 FL (83-96); MEAN CORPUSCULAR HEMOGLOBIN 21.5 PG (28-34); MEAN CORPUSCULAR HGB CONC 29.8 g/dL (30-36); MEAN PLATELET VOLUME 7.5 FL (6.5-11.5); RED BLOOD COUNT 5.43 X10e (3.90-5.30); RED CELL DISTRIBUTION WIDTH 19.1 % (11.0-15.5); WHITE BLOOD COUNT 7.9 X10e3 (4.0-10.5)
[2016-10-02 07:31] LABS: CREATININE SERUM 0.9 mg/dL (0.6-1.4); GLOM FILT RATE Estimated 88.3 mL/min (>60); POTASSIUM 3.8 mmol/L (3.5-5.1)
[2016-10-03 03:29] LABS: ARTERIAL BLOOD GAS CARBOXY HB 1.2 %sat (0.0-9.0); ARTERIAL BLOOD GAS HCO3 30.5 mmol/L; ARTERIAL BLOOD GAS MET HB 0.6 %sat (0.0-2.0); ARTERIAL BLOOD GAS PCO2 49.1 mmHg (35.0-45.0); ARTERIAL BLOOD GAS PO2 96.7 mmHg (80.0-100); ARTERIAL BLOOD GAS pH 7.402 (7.350-7.450)
[2016-10-03 03:31] LABS: ARTERIAL BLOOD GAS ALLEN TEST NORMAL; ARTERIAL BLOOD GAS ART SITE RIGHT RADIAL; ARTERIAL BLOOD GAS DELIVERY CPAP 7; ARTERIAL DRAW? YES
[2016-10-03 05:57] LABS: BUN/CREATININE RATIO 28.88; CALCIUM SERUM 8.8 mg/dL (8.4-10.2); CREATININE SERUM 0.9 mg/dL (0.6-1.4); GLOM FILT RATE Estimated 88.3 mL/min (>60); MAGNESIUM 1.9 mg/dL (1.6-3.0)
[2016-10-04 06:33] LABS: BUN/CREATININE RATIO 27.14; CALCIUM SERUM 8.7 mg/dL (8.4-10.2); CREATININE SERUM 0.7 mg/dL (0.6-1.4); GLOM FILT RATE Estimated 119.6 mL/min (>60); MAGNESIUM 2.1 mg/dL (1.6-3.0); POTASSIUM 3.7 mmol/L (3.5-5.1)
[2016-10-04] MEDS ORDERED: NORVASC PO (15:14)
[2016-10-04] MEDS ORDERED: LASIX PO (15:15)
[2016-10-04] MEDS ORDERED: LISINOPRIL PO (15:16)
[2016-10-04] MEDS ORDERED: LEVEMIR100 UNITS/ SUBQ (15:22)
[2016-10-04] MEDS ORDERED: NOVOLOG100 UNITS/ SUBQ (15:24)
[2016-10-04] MEDS ORDERED: ALDACTONE PO (15:26)
== END 2016-10-04 17:42 | disposition home or self-care (01) | DRG 291 ==
LOC: CED 13:47 → C3A PCU 18:20 → CEDOF 18:20 → CED 19:38 → CEDOF 19:38 → C3A PCU 21:55
PROVIDERS: Hospitalist; Internal Medicine; Internal Medicine Cardiovascular Disease; Nurse Practitioner
PROC: B32TYZZ Computerized Tomography (CT Scan) of Left Pulmonary Artery using Other Contrast (ICD-10-PCS; principal; 2016-09-25)
PROC: B32SYZZ Computerized Tomography (CT Scan) of Right Pulmonary Artery using Other Contrast (ICD-10-PCS; 2016-09-25)
PROC: B24BYZZ Ultrasonography of Heart with Aorta using Other Contrast (ICD-10-PCS; 2016-09-26)
DX: I11.0 Hypertensive heart disease with heart failure (principal); J96.00 Acute respiratory failure, unspecified whether with hypoxia or hypercapnia; Z68.44 Body mass index [BMI] 60.0-69.9, adult; E66.01 Morbid (severe) obesity due to excess calories; E11.65 Type 2 diabetes mellitus with hyperglycemia; I27.2 Other secondary pulmonary hypertension; R07.89 Other chest pain; G47.33 Obstructive sleep apnea (adult) (pediatric); E78.5 Hyperlipidemia, unspecified; Z88.0 Allergy status to penicillin; Z79.4 Long term (current) use of insulin; Z71.6 Tobacco abuse counseling; Z91.19 Patient's noncompliance with other medical treatment and regimen; J44.9 Chronic obstructive pulmonary disease, unspecified; I50.33 Acute on chronic diastolic (congestive) heart failure; F41.9 Anxiety disorder, unspecified
CPT/HCPCS: 36415; 36600; 71020; 71275; 80048; 80053; 82308; 82550; 82553; 82803; 82947; 83735; 83880; 84484; 85025; 85027; 85379; 85610; 85730; 93005; 93306; 93970; 94640; 94660; 94664; 94760; 96374; 99285; J0456; J0696; J1650; J1815; J1940; J2930; Q9967

== ENCOUNTER → 2016-11-16 | Outpatient (CLI) | payer MEDICARE ==
[~2016-11-16] MED LIST changes: +ALBUTEROL17 GM INH; +ALDACTONE PO; +CALCIUM 600 +1 EAC2 PO; +FUROSEMIDE40 MG PO; +KLONOPIN1 MG PO; +LAMICTAL PO; +LAMICTAL XR300 MG PO; +LASIX PO; +LATUDA20 MG PO; +LEVEMIR100 UNITS/ SUBQ; +LISINOPRIL PO; +LISINOPRIL30 MG PO; +LOPRESSOR PO; +METFORMIN HCL1000 M1 PO; +NAPROSYN-EC500 M1 DOB; +NATURAL VITA400 UNI2 PO; +NORVASC PO; +NOVOLOG MI100 UNIT/1 SUBQ; +NOVOLOG100 UNITS/ SUBQ; +PRAVASTATIN SOD40 MG PO; +SOOTHING CARE28 GM TOP
[2016-11-16 11:23] LABS: BUN/CREATININE RATIO 18.57; CALCIUM SERUM 9.1 mg/dL (8.4-10.2); CREATININE SERUM 0.7 mg/dL (0.6-1.4); GLOM FILT RATE Estimated 119.6 mL/min (>60); MAGNESIUM 1.6 mg/dL (1.6-3.0); POTASSIUM 3.8 mmol/L (3.5-5.1)
== END | disposition home or self-care (01) ==
LOC: CLAB 10:07
DX: I10 Essential (primary) hypertension (principal)
CPT/HCPCS: 36415; 80048; 83735